=== PATIENT | male | born 1990 | race Caucasian/White ===

== ENCOUNTER 2018-11-09 07:47 | Emergency (ER) | payer OTHER ==
[~2018-11-09] VITALS: Ht 167.6 cm; Wt 90.7 kg
[2018-11-09] MEDS ORDERED: [UNRECOGNIZED DRUG - OTHER] (08:47)
== END 2018-11-09 09:00 | disposition home or self-care (01) ==
LOC: ER 07:47
DX: H10.11 Acute atopic conjunctivitis, right eye (principal)

== ENCOUNTER 2018-12-01 01:42 | Emergency (ER) | payer OTHER ==
[~2018-12-01] VITALS: Ht 152.4 cm; Wt 90.7 kg
[~2018-12-01 01:42] MED LIST: [UNRECOGNIZED DRUG - OTHER]
[2018-12-01] MEDS ORDERED: ORPHENADRINE C100 MG PO (06:44)
[2018-12-01] MEDS ORDERED: DICLOFENAC SODI50 MG PO (06:44)
== END 2018-12-01 14:46 | disposition home or self-care (01) ==
LOC: ER 01:42
DX: M54.5 Low back pain (principal)

== ENCOUNTER 2019-07-11 11:45 | Emergency (ER) | payer OTHER ==
[~2019-07-11] VITALS: Ht 167.6 cm; Wt 101.2 kg
[~2019-07-11 11:45] MED LIST changes: +DICLOFENAC SODI50 MG PO; +ORPHENADRINE C100 MG PO
== END 2019-07-11 14:10 | disposition home or self-care (01) ==
LOC: ER 11:45
DX: J35.01 Chronic tonsillitis (principal)

== ENCOUNTER 2021-12-22 02:34 | Emergency (ER) | payer OTHER ==
[~2021-12-22] VITALS: Ht 167.6 cm; Wt 103.9 kg
[2021-12-22] MEDS ORDERED: COZAAR25 MG PO (02:45)
== END 2021-12-22 05:24 | disposition home or self-care (01) ==
LOC: ER 02:34
DX: K29.70 Gastritis, unspecified, without bleeding (principal); I10 Essential (primary) hypertension; Z88.0 Allergy status to penicillin; Z91.013 Allergy to seafood

== ENCOUNTER 2022-05-10 02:01 | Emergency (ER) | payer OTHER ==
[~2022-05-10] VITALS: Ht 167.6 cm; Wt 103.9 kg
[~2022-05-10 02:01] MED LIST changes: +COZAAR25 MG PO
[2022-05-10] MEDS ORDERED: PANTOPRAZOLE SO40 MG PO (02:16)
[2022-05-10] MEDS ORDERED: ZITHROMAX500 MG PO ×3 (04:45→04:49)
== END 2022-05-10 05:09 | disposition home or self-care (01) ==
LOC: ER 02:01
DX: J45.909 Unspecified asthma, uncomplicated (principal); Z20.822 Contact with and (suspected) exposure to COVID-19; I10 Essential (primary) hypertension; Z88.0 Allergy status to penicillin; Z88.6 Allergy status to analgesic agent; Z91.013 Allergy to seafood

== ENCOUNTER 2022-07-22 03:27 | Emergency (ER) | payer OTHER ==
[~2022-07-22] VITALS: Ht 167.6 cm; Wt 99.8 kg
[~2022-07-22 03:27] MED LIST changes: +PANTOPRAZOLE SO40 MG PO; +ZITHROMAX500 MG PO
== END 2022-07-22 05:27 | disposition home or self-care (01) ==
LOC: ER 03:27
DX: J06.9 Acute upper respiratory infection, unspecified (principal); Z88.6 Allergy status to analgesic agent; Z88.0 Allergy status to penicillin; Z91.013 Allergy to seafood

== ENCOUNTER 2023-06-01 10:28 | Emergency (ER) | payer OTHER ==
[~2023-06-01] VITALS: Ht 167.6 cm; Wt 100.7 kg
== END 2023-06-01 16:04 | disposition home or self-care (01) ==
LOC: ER 10:29
DX: S61.452A Open bite of left hand, initial encounter (principal); S61.451A Open bite of right hand, initial encounter; W55.01XA Bitten by cat, initial encounter; Y93.89 Activity, other specified; Y92.89 Other specified places as the place of occurrence of the external cause; Y99.8 Other external cause status; Z88.0 Allergy status to penicillin; Z88.6 Allergy status to analgesic agent; Z91.013 Allergy to seafood

== ENCOUNTER 2023-07-16 05:27 | Emergency (ER) | payer OTHER ==
[~2023-07-16] VITALS: Ht 167.6 cm; Wt 99.8 kg
[2023-07-16] MEDS ORDERED: KETOROLAC TROMETHAMINE 10 MG TABLET PO STA (07:16)
[2023-07-16 07:47] LABS: PH,URINE 6.5 (5.0-8.0); URINE APPEARANCE Clear; URINE BILIRRUBIN Negative (NEGATIVE); URINE BLOOD Negative; URINE COLOR Yellow; URINE GLUCOSE Negative (NEGATIVE); URINE LEUKOCYTE Negative; URINE NITRATE Negative; URINE PROTEIN Negative (NEGATIVE); URINE UROBILINOGEN 0.2 E.U./dl
[2023-07-16 07:48] LABS: URINE BACTERIA 18.8 uL (0.0-1933); URINE WBC 2.3 uL (0.0-23.2)
[2023-07-16 07:50] LABS: URINE EPITHELIAL CELLS 1.2 uL (0.0-38.8)
[2023-07-16 07:53] LABS: HEMATOCRIT 44.4 % (39.0-48.0); HEMOGLOBIN 15.3 g/dL (13-16.00); MEAN CELL VOLUME 83.9 fL (80.0-100.00); MEAN CORPUSCULAR HEMOGLOBIN 28.8 pg (27.00-32.0); MEAN CORPUSCULAR HGB CONC 34.4 g/dl (32.0-36.0); PLATELET COUNT 343 K/uL (150-450); RED BLOOD COUNT 5.29 M/uL (4.00-6.00); RED CELL DISTRIBUTION WIDTH 13.9 % (11.5-14.5)
[2023-07-16] MEDS ORDERED: CIPRO500 MG PO (09:49)
== END 2023-07-16 09:55 | disposition home or self-care (01) ==
LOC: ER 05:27
PROVIDERS: General Practice
DX: N45.3 Epididymo-orchitis (principal); I10 Essential (primary) hypertension; Z88.6 Allergy status to analgesic agent; Z88.0 Allergy status to penicillin; Z91.013 Allergy to seafood

== ENCOUNTER 2024-02-11 01:45 | Emergency (ER) | payer OTHER ==
[~2024-02-11] VITALS: Ht 167.6 cm; Wt 100.7 kg
[~2024-02-11 01:45] MED LIST changes: +CIPRO500 MG PO
[2024-02-11] MEDS ORDERED: LONITEN2.5 MG PO (01:53)
[2024-02-11] MEDS ORDERED: FINASTERIDE1 MG PO (01:53)
[2024-02-11] MEDS ORDERED: TRUVADA 100 MG1 EACH PO (01:54)
[2024-02-11 02:02] VITALS: BP 120/77; O2SAT 97
[2024-02-11] MEDS ORDERED: CEFTRIAXONE SODIUM 1,000 MG VIAL IM STA (03:45)
[2024-02-11] MEDS ORDERED: CIPRO500 MG PO (04:07)
[2024-02-11] MEDS ORDERED: CENTANY30 GM TOP (04:07)
== END 2024-02-11 04:12 ==
LOC: ER 01:47
DX: N48.1 Balanitis (principal); Z88.6 Allergy status to analgesic agent; Z88.0 Allergy status to penicillin; Z91.013 Allergy to seafood

== ENCOUNTER 2024-06-26 06:48 | Emergency (ER) | payer OTHER ==
[~2024-06-26] VITALS: Ht 167.6 cm; Wt 99.8 kg
[~2024-06-26 06:48] MED LIST changes: +CENTANY30 GM TOP; +FINASTERIDE1 MG PO; +LONITEN2.5 MG PO; +TRUVADA 100 MG1 EACH PO
[2024-06-26] MEDS ORDERED: ACETAMINOPHEN 500 MG GEL..CAP PO STA (08:45)
[2024-06-26] MEDS ORDERED: ACETAMINOPHEN 500 MG GEL..CAP PO ONE (08:48)
[2024-06-26 09:39] LABS: HEMOGLOBIN 14.6 g/dL (13-16.00); MEAN CELL VOLUME 87.9 fL (80.0-100.00); MEAN CORPUSCULAR HEMOGLOBIN 29.8 pg (27.00-32.0); MEAN CORPUSCULAR HGB CONC 33.9 g/dl (32.0-36.0); RED BLOOD COUNT 4.89 M/uL (4.00-6.00); RED CELL DISTRIBUTION WIDTH 13.2 % (11.5-14.5)
[2024-06-26 10:21] LABS: PLATELET COUNT 251 K/uL (150-450)
== END 2024-06-26 10:42 | disposition home or self-care (01) ==
LOC: ER 06:50
PROVIDERS: General Practice
DX: B34.9 Viral infection, unspecified (principal); Z20.822 Contact with and (suspected) exposure to COVID-19; I10 Essential (primary) hypertension; Z87.09 Personal history of other diseases of the respiratory system; Z88.0 Allergy status to penicillin; Z91.013 Allergy to seafood

== ENCOUNTER → 2024-10-24 | Emergency (ER) | payer OTHER ==
[~2024-10-24] VITALS: Ht 167.6 cm; Wt 96.6 kg
[~2024-10-24] MED LIST changes: +0.9 % SODIUM CHLORIDE 1,000 ML IV ONE; +AVAPRO75 MG; +FAMOTIDINE/PF 20 MG/2 ML VIAL IV PUSH STA; +FAMOTIDINE/PF 20 MG/2 ML VIAL ONE; +HYOSCYAMINE SULFATE 0.125 MG TAB.SUBL ONE; +HYOSCYAMINE SULFATE 0.125 MG TAB.SUBL SL STA; +INTESTINEX680 M1 PO; +LACTOBACILLUS ACIDOPHILUS 1 CAP CAP PO ONE; +LACTOBACILLUS ACIDOPHILUS 1 CAP CAP PO STA; +LEVSIN/SL0.125 MG SL; +PEPCID40 MG PO; +PROTONIX40 MG PO; +SUCRALFATE 1 G TABLET PO STA
[2024-10-24 04:28] LABS: BASO % 0.2 % (0.1-1.2); EOS # 0.01 (0.04-0.54); EOS % 0.1 % (0.7-7.0); HEMATOCRIT 41.6 % (40.1-51.0); HEMOGLOBIN 14.5 g/dL (13.7-17.5); LYMPH # 0.54 (1.18-3.74); LYMPH % 5.5 % (19.3-53.1); MEAN CORPUSCULAR HEMOGLOBIN 29.1 pg (25.6-32.2); MONO # 0.71 (0.24-0.82); MONO % 7.2 % (4.7-12.5); NEUT # 8.52 (1.56-6.13); NEUT % 86.8 % (34.0-71.1); PLATELET COUNT 279 K/uL (163-369); RED BLOOD COUNT 4.98 M/uL (4.63-6.08); RED CELL DISTRIBUTION WIDTH 12.3 % (11.6-14.4)
[2024-10-24 04:37] LABS: CALCIUM 8.6 mg/dL (8.5-10.1); CREATININE SERUM 0.86 mg/dL (0.70-1.30); GFR 102.41; POTASSIUM 3.4 mEq/L (3.5-5.1)
[2024-10-24 04:47] LABS: COVID-19 AG NEGATIVE (NEGATIVE)
[2024-10-24 04:53] LABS: INFLUENZA A AG NEGATIVE (NEGATIVE); INFLUENZA B AG NEGATIVE (NEGATIVE)
[2024-10-24 06:27] LABS: URINE APPEARANCE Clear; URINE BILIRRUBIN Negative (NEGATIVE); URINE BLOOD Negative; URINE COLOR Yellow; URINE GLUCOSE Negative (NEGATIVE); URINE KETONE Negative (NEGATIVE); URINE LEUKOCYTE Negative; URINE NITRATE Negative; URINE PROTEIN Trace (NEGATIVE); URINE UROBILINOGEN 0.2 E.U./dl
[2024-10-24 06:31] LABS: URINE BACTERIA 9.7 uL (0.0-1933); URINE EPITHELIAL CELLS 2.8 uL (0.0-38.8); URINE WBC 10.5 uL (0.0-23.2)
[2024-10-24 06:41] LABS: URINE CAST 0.29 uL (0.0-1.40); URINE RBC 1.9 uL (0.0-20.8)
== END | disposition home or self-care (01) ==
LOC: ER 02:55
PROVIDERS: General Practice
DX: R19.7 Diarrhea, unspecified (principal); R50.9 Fever, unspecified; I10 Essential (primary) hypertension; Z20.822 Contact with and (suspected) exposure to COVID-19